=== PATIENT | female | born 1965 | race Caucasian/White ===

== ENCOUNTER 2016-09-30 13:44 | Emergency (ER) | payer OTHER ==
[2016-09-30] MEDS ORDERED: Ondansetron HCl/PF 4 MG/2 ML Vial ONE (14:18)
[2016-09-30] MEDS ORDERED: Aspirin 325 MG TAB ONE (14:18)
[2016-09-30] MEDS ORDERED: Metoclopramide HCl 10 MG/2 ML VIAL ONE (14:20)
[2016-09-30 14:41] LABS: PTT 25.3 SEC (22.9-36.1); Prothrombin Time 13.1 SEC (12.0-14.7)
--- NOTE | 2016-09-30 14:42 | RAD ---
PORTABLE AP CHEST: Date: 09-30-16 History: Chest pain, cardiac arrest. Comparison: 08-07-16 FINDINGS: Dual-lead left subclavian AICD device remains in place. Cardiac silhouette is magnified by projectio n but stable in size and does appear mildly enlarged. Pulmonary vasculature is within normal limits. The lungs remain clear. There is no interval change when compared to the prior exam. IMPRESSION: 1. No acute cardiopulmonary process. 2. Stable cardiomegaly. POS: [facility]
[2016-09-30] MEDS ORDERED: Nitroglycerin 0.4 MG TAB (25 Tab Bottle) ONE (14:47)
[2016-09-30 14:49] LABS: #Basophils 0.1 thou/uL (0.0-0.2); #Eosinphils 0.2 thou/uL (0.0-0.7); #Lymphocytes 2.2 thou/uL (1.20-3.40); #Monocytes 0.3 thou/uL (0.11-0.59); #Neutrophils 6.5 thou/uL (1.40-6.50); %Basophils 0.8 % (0.0-1.0); %Eosinophils 1.8 % (0.0-10.0); %Lymphocytes 23.4 % (21.0-51.0); %Monocytes 3.6 % (0.0-10.0); %Neutrophils 70.4 % (42.0-75.0); Hemoglobin 15.1 g/dL (12.0-16.0); Mean Corpuscular Hemoglobin 30.9 pg (27.0-31.0); Mean Corpuscular Volume 91.1 fl (81.0-99.0); Mean Platelet Volume 6.6 fL (7.4-10.4); Platelet Count 311 thou/uL (130-400); RBC Distribution Width 12.8 % (11.5-14.5); White Blood Cell (WBC) Count 9.2 thou/uL (4.8-10.8)
[2016-09-30 14:50] LABS: ALT (SGPT) 19 U/L (8-55); AST (SGOT) 17 U/L (5-34); Albumin 4.3 g/dL (3.5-5.0); Alkaline Phosphatase 73 U/L (40-150); Anion Gap 16 mmol/L (10-20); BUN (Urea Nitrogen) 14 mg/dL (9.8-20.1); Bilirubin, Total 0.6 mg/dL (0.2-1.2); Calc. Creatinine Clearance 0 mL/min (70-130); Calcium 10.3 mg/dL (7.8-10.44); Carbon Dioxide 24 mmol/L (22-29); Chloride 101 mmol/L (98-107); Estimated GFR-MDRD 40; Globulin 3.1 g/dL (2.4-3.5); Glucose 116 mg/dL (70-105); Potassium 3.6 mmol/L (3.5-5.1); Protein, Total 7.4 g/dL (6.0-8.3); Sodium 137 mmol/L (136-145)
[2016-09-30 14:51] LABS: CKMB 1.3 ng/mL (0-6.6); Troponin I 0.136 ng/mL (< 0.028)
== END 2016-09-30 17:32 | disposition short-term general hospital (02) ==
LOC: NAV ERS 13:44
DX: I24.9 Acute ischemic heart disease, unspecified (principal); I10 Essential (primary) hypertension; I25.2 Old myocardial infarction; F17.210 Nicotine dependence, cigarettes, uncomplicated; Z79.82 Long term (current) use of aspirin
CPT/HCPCS: 71010; 80053; 82553; 83880; 84484; 85025; 85610; 85730; 93005; 96374; 96375; 96376; J2270; J2405; J2765

== ENCOUNTER 2017-05-31 20:37 | Emergency (ER) | payer MEDICARE ==
[2017-05-31] MEDS ORDERED: Nitroglycerin 0.4 MG TAB (25 Tab Bottle) ONE (20:57)
[2017-05-31 20:59] LABS: #Basophils 0.1 thou/uL (0.0-0.2); #Eosinphils 0.2 thou/uL (0.0-0.7); #Lymphocytes 3.1 thou/uL (1.20-3.40); #Monocytes 0.5 thou/uL (0.11-0.59); #Neutrophils 4.3 thou/uL (1.40-6.50); %Basophils 1.5 % (0.0-1.0); %Eosinophils 2.7 % (0.0-10.0); %Lymphocytes 37.8 % (21.0-51.0); %Monocytes 5.5 % (0.0-10.0); %Neutrophils 52.5 % (42.0-75.0); Hemoglobin 15.8 g/dL (12.0-16.0); Mean Corpuscular HGB CONC 33.8 g/dL (32.0-36.0); Mean Platelet Volume 7.6 fL (7.4-10.4); Platelet Count 281 thou/uL (130-400); RBC Distribution Width 12.6 % (11.5-14.5); Red Blood Cell (RBC) Count 5.25 mill/uL (4.20-5.40); White Blood Cell (WBC) Count 8.2 thou/uL (4.8-10.8)
[2017-05-31 21:21] LABS: CKMB 0.6 ng/mL (0-6.6); Troponin I 0.158 ng/mL (< 0.028)
[2017-05-31 21:36] LABS: ALT (SGPT) 15 U/L (8-55); AST (SGOT) 14 U/L (5-34); Albumin 3.6 g/dL (3.5-5.0); Alkaline Phosphatase 61 U/L (40-150); Anion Gap 13 mmol/L (10-20); BUN (Urea Nitrogen) 21 mg/dL (9.8-20.1); Bilirubin, Total 0.5 mg/dL (0.2-1.2); Calc. Creatinine Clearance 0 mL/min (70-130); Calcium 10.3 mg/dL (7.8-10.44); Carbon Dioxide 25 mmol/L (22-29); Chloride 101 mmol/L (98-107); Estimated GFR-MDRD 33; Globulin 3.1 g/dL (2.4-3.5); Glucose 119 mg/dL (70-105); Potassium 3.8 mmol/L (3.5-5.1); Protein, Total 6.7 g/dL (6.0-8.3); Sodium 135 mmol/L (136-145)
[2017-05-31] MEDS ORDERED: Heparin 5,000 UNITS/ML VIAL ONE (21:37)
[2017-05-31] MEDS ORDERED: Sodium Chloride 0.9% 0 ML ONE (21:41)
[2017-05-31] MEDS ORDERED: Heparin 25,000 units/D5W 0 ML ONE (21:45)
--- NOTE | 2017-05-31 22:09 | RAD ---
AP CHEST: Indication: Left sided chest and breast pain. Comparison: 04-01-17 FINDINGS: There is some obscuration of the left hemidiaphragm which may reflect a left lower lobe pneumonia. Re commend a two view chest radiograph for further evaluation. Cardiomegaly is stable. AICD is unchanged . Right lung is clear. No acute osseous abnormality identified. IMPRESSION: 1. Retrocardiac airspace opacity may be related to poor penetration due to patient's body habitus; ho wever, left lower lobe pneumonia is not excluded. Recommend PA and lateral of the chest for further e valuation. 2. Stable cardiomegaly without evidence of cardiac decompenstation. POS: [facility]
== END 2017-05-31 22:35 | disposition short-term general hospital (02) ==
LOC: EEVIPCON 20:37 → NAV ERS 20:37
DX: I21.4 Non-ST elevation (NSTEMI) myocardial infarction (principal); I25.2 Old myocardial infarction; I25.10 Atherosclerotic heart disease of native coronary artery without angina pectoris; I10 Essential (primary) hypertension; E78.5 Hyperlipidemia, unspecified; E66.9 Obesity, unspecified; F32.9 Major depressive disorder, single episode, unspecified; F17.210 Nicotine dependence, cigarettes, uncomplicated; Z79.899 Other long term (current) drug therapy
CPT/HCPCS: 36415; 71045; 80053; 82553; 84484; 85025; 93005; 96374; J1644

== ENCOUNTER 2018-06-25 20:56 | Emergency (ER) | payer MEDICARE ==
--- NOTE | 2018-06-25 21:37 | RAD ---
LEFT ANKLE 3 VIEWS: HISTORY: Injury, left ankle pain FINDINGS: The ankle mortise is maintained. No acute fracture or dislocation is identified. There are plantar an d posterior calcaneal spurs. IMPRESSION: No acute bony abnormality.
== END 2018-06-25 21:50 | disposition home or self-care (01) ==
LOC: NAV ERS 20:56
DX: S93.402A Sprain of unspecified ligament of left ankle, initial encounter (principal); X50.1XXA Overexertion from prolonged static or awkward postures, initial encounter; I25.2 Old myocardial infarction; E78.5 Hyperlipidemia, unspecified; I10 Essential (primary) hypertension; I48.91 Unspecified atrial fibrillation; E03.9 Hypothyroidism, unspecified; F41.9 Anxiety disorder, unspecified; F17.210 Nicotine dependence, cigarettes, uncomplicated; F32.9 Major depressive disorder, single episode, unspecified; Z79.891 Long term (current) use of opiate analgesic; Z79.899 Other long term (current) drug therapy

== ENCOUNTER 2018-09-27 09:55 | Emergency (ER) | payer MEDICARE ==
[2018-09-27 10:55] LABS: #Basophils 0.1 thou/uL (0.0-0.2); #Eosinphils 0.2 thou/uL (0.0-0.7); #Lymphocytes 1.9 thou/uL (1.20-3.40); #Monocytes 0.4 thou/uL (0.11-0.59); #Neutrophils 6.9 thou/uL (1.40-6.50); %Basophils 0.7 % (0.0-1.0); %Eosinophils 2.3 % (0.0-10.0); %Lymphocytes 19.9 % (21.0-51.0); %Monocytes 4.6 % (0.0-10.0); %Neutrophils 72.5 % (42.0-75.0); Hemoglobin 13.7 g/dL (12.0-16.0); Mean Corpuscular HGB CONC 31.4 g/dL (32.0-36.0); Mean Corpuscular Hemoglobin 30.6 pg (27.0-31.0); Mean Corpuscular Volume 97.5 fL (78.0-98.0); Mean Platelet Volume 8.4 fL (7.4-10.4); Platelet Count 194 thou/uL (130-400); RBC Distribution Width 14.1 % (11.5-14.5); Red Blood Cell (RBC) Count 4.49 mill/uL (4.20-5.40); White Blood Cell (WBC) Count 9.5 thou/uL (4.8-10.8)
[2018-09-27] MEDS ORDERED: Ondansetron PF 4 MG/2 ML Vial ONE (11:05)
[2018-09-27] MEDS ORDERED: Sodium Chloride 0.9% 1,000 ML ONE (11:05)
[2018-09-27] MEDS ORDERED: Morphine 4 MG/ML VIAL ONE ×2 (11:06→13:08)
[2018-09-27 11:10] LABS: ALT (SGPT) 18 U/L (8-55); AST (SGOT) 14 U/L (5-34); Albumin 3.8 g/dL (3.5-5.0); Alkaline Phosphatase 52 U/L (40-150); Anion Gap 14 mmol/L (10-20); BUN (Urea Nitrogen) 14 mg/dL (9.8-20.1); Calc. Creatinine Clearance 0 mL/min (70-130); Calcium 9.3 mg/dL (7.8-10.44); Carbon Dioxide 26 mmol/L (22-29); Chloride 99 mmol/L (98-107); Estimated GFR-MDRD 46; Globulin 2.4 g/dL (2.4-3.5); Glucose 183 mg/dL (70-105); Lipase 40 U/L (8-78); Protein, Total 6.2 g/dL (6.0-8.3); Sodium 136 mmol/L (136-145)
[2018-09-27 11:11] LABS: Potassium 2.9 mmol/L (3.5-5.1)
[2018-09-27 11:26] LABS: CKMB 0.7 ng/mL (0-6.6)
--- NOTE | 2018-09-27 11:49 | CT ---
CT Abdomen Pelvis WO Con: 09/27/2018 11:20 AM HISTORY: Right lower quadrant abdominal pain COMPARISON: 06/24/2014 TECHNIQUE: Multiple contiguous axial images were obtained and a CT of the abdomen and pelvis without IV contrast . Coronal reformats were performed. FINDINGS: This examination is limited for the evaluation of solid organs and vascular structures due to the lac k of intravenous contrast. Lower Chest: within normal limits. Abdomen: Liver: There is a small stable hypodensity in the right lobe of liver which is too small to definitel y characterize but may represent a cyst. Bile Ducts: Normal caliber. Gallbladder: No calcified gallstones. Normal caliber wall. Pancreas: within normal limits. Spleen: within normal limits. Adrenals: within normal limits. Kidneys: within normal limits. Pelvis: Reproductive Organs: No pelvic masses. Ureters: within normal limits. Bladder: within normal limits. Bowel: Normal caliber. Normal appendix. Inflammatory changes seen adjacent to the right colon just pr oximal to the hepatic flexure. There are a few subtle scattered diverticula in the colon. Mesenteric Lymph Nodes: No enlarged mesenteric lymph nodes. Peritoneum: No ascites or free air, no fluid collection. Vessels: Atherosclerotic calcifications in the aorta Retroperitoneum: within normal limits. Abdominal Wall: within normal limits. Bones: Unremarkable. IMPRESSION: Inflammatory changes adjacent to the right colon may be secondary to focal colitis. Diverticulitis is a possibility as there are a few scattered diverticula in the colon.
[2018-09-27 12:01] LABS: Bilirubin Small (Negative); Blood, Urine Negative (Negative); Clarity Clear (Clear); Glucose, Urine (Dipstick) Negative (Negative); Leukocyte Negative (Negative); Nitrite Negative (Negative); Protein, Urine (Dipstick) Trace mg/dL (Neg-Trace)
[2018-09-27] MEDS ORDERED: Potassium Chloride 20 MEQ TAB ONE (12:02)
[2018-09-27] MEDS ORDERED: metroNIDAZOLE 500 MG/100 ML BAG ONE (12:56)
[2018-09-27] MEDS ORDERED: Ciprofloxacin Lactate/D5W 400 mg/200 ml Premix ONE (12:56)
== END 2018-09-27 13:24 | disposition short-term general hospital (02) ==
LOC: NAV ERS 09:55
DX: K52.9 Noninfective gastroenteritis and colitis, unspecified (principal); E87.6 Hypokalemia; R79.89 Other specified abnormal findings of blood chemistry; R09.02 Hypoxemia; I25.2 Old myocardial infarction; E78.5 Hyperlipidemia, unspecified; I10 Essential (primary) hypertension; E03.9 Hypothyroidism, unspecified; E66.9 Obesity, unspecified; I48.91 Unspecified atrial fibrillation; F41.9 Anxiety disorder, unspecified; F32.9 Major depressive disorder, single episode, unspecified; F17.210 Nicotine dependence, cigarettes, uncomplicated; Z79.899 Other long term (current) drug therapy
CPT/HCPCS: 36415; 74176; 80053; 81003; 82553; 83690; 83735; 84484; 85025; 93005; 94760; 96361; 96365; 96368; 96375; 96376; J0744; J2270; J2405; J7050

== ENCOUNTER 2018-11-26 07:11 | Emergency (ER) | payer MEDICARE ==
[2018-11-26] MEDS ORDERED: Promethazine HCl 25 MG/ML VIAL ONE (07:59)
[2018-11-26] MEDS ORDERED: Morphine 4 MG/ML VIAL ONE ×2 (07:59→10:02)
[2018-11-26 08:28] LABS: INR-International Normal Ratio 1.1; PTT 29.7 SEC (22.9-36.1); Prothrombin Time 14.1 SEC (12.0-14.7)
[2018-11-26 08:29] LABS: #Basophils 0.1 thou/uL (0.0-0.2); #Eosinphils 0.1 thou/uL (0.0-0.7); #Lymphocytes 1.5 thou/uL (1.20-3.40); #Monocytes 0.5 thou/uL (0.11-0.59); #Neutrophils 9.9 thou/uL (1.40-6.50); %Basophils 0.6 % (0.0-1.0); %Eosinophils 0.8 % (0.0-10.0); %Lymphocytes 12.6 % (21.0-51.0); %Monocytes 4.3 % (0.0-10.0); %Neutrophils 81.7 % (42.0-75.0); Hemoglobin 15.3 g/dL (12.0-16.0); Mean Corpuscular HGB CONC 32.5 g/dL (32.0-36.0); Mean Corpuscular Hemoglobin 30.4 pg (27.0-31.0); Mean Corpuscular Volume 93.6 fL (78.0-98.0); Mean Platelet Volume 7.7 fL (7.4-10.4); Platelet Count 217 thou/uL (130-400); RBC Distribution Width 13.1 % (11.5-14.5); Red Blood Cell (RBC) Count 5.04 mill/uL (4.20-5.40); White Blood Cell (WBC) Count 12.1 thou/uL (4.8-10.8)
[2018-11-26 08:38] LABS: ALT (SGPT) 14 U/L (8-55); AST (SGOT) 13 U/L (5-34); Albumin 4.2 g/dL (3.5-5.0); Alkaline Phosphatase 67 U/L (40-110); Anion Gap 15 mmol/L (10-20); BUN (Urea Nitrogen) 11 mg/dL (9.8-20.1); Bilirubin, Total 1.4 mg/dL (0.2-1.2); CK (CPK) 47 U/L (29-168); Calc. Creatinine Clearance 0 mL/min (70-130); Calcium 9.2 mg/dL (7.8-10.44); Carbon Dioxide 21 mmol/L (22-29); Chloride 105 mmol/L (98-107); Estimated GFR-MDRD 53; Globulin 2.7 g/dL (2.4-3.5); Glucose 133 mg/dL (70-105); Lipase 12 U/L (8-78); Potassium 4.1 mmol/L (3.5-5.1); Protein, Total 6.9 g/dL (6.0-8.3); Sodium 137 mmol/L (136-145)
[2018-11-26 08:55] LABS: CKMB 0.9 ng/mL (0-6.6)
[2018-11-26 09:00] LABS: Bilirubin Negative (Negative); Blood, Urine Moderate (Negative); Clarity Clear (Clear); Glucose, Urine (Dipstick) Negative (Negative); Leukocyte Negative (Negative); Nitrite Negative (Negative); Protein, Urine (Dipstick) 100 mg/dL (Neg-Trace)
[2018-11-26 09:11] LABS: Bacteria/HPF 1+ HPF (None Seen); WBC/HPF 0-3 HPF (0-3)
--- NOTE | 2018-11-26 09:32 | RAD ---
FRONTAL RADIOGRAPH CHEST UPRIGHT AND SUPINE IMAGING ABDOMEN AND PELVIS: DATE: 11/26/2018. HISTORY: Pain. FINDINGS: Cardiac silhouette is prominent. Mild pulmonary vascular congestion. There is a multilead AICD inse rted via a left subclavian approach. The upright imaging demonstrates no free intraperitoneal air. Evaluation of the bowel gas pattern is limited secondary to a paucity of bowel gas. No gas-filled dilated bowel is seen. IMPRESSION: Prominent cardiac silhouette with no evidence for alveolar edema or focal consolidation. No evidence for free intraperitoneal air. Paucity of bowel gas limits detailed assessment of the bowel gas andi albin. No gas-filled dilated bowel is noted. POS: [facility]
[2018-11-26] MEDS ORDERED: Acetaminophen/Codeine 30-300mg Tablet ONE (09:34)
--- NOTE | 2018-11-26 09:45 | CT ---
Exam: Abdomen CT without contrast Pelvic CT without contrast HISTORY: Abdominal pain. Diarrhea. Bright red blood in stool. COMPARISON: 09/27/2018 FINDINGS: Abdomen CT: Lung bases:Clear Heart size: Enlarged. No significant pericardial fluid Aorta: Atherosclerosis. No aneurysm. No periaortic fat stranding Solid organs: Limited evaluation due to lack of IV contrast. Stable hypodensities in the hepatic pare nchyma. Grossly no solid organ abnormality Lymph nodes: No gastrohepatic, retrocrural or periportal lymphadenopathy Gallbladder: Unremarkable Mesentery: No mass, lymphadenopathy, free air or free fluid Kidneys: Bilaterally, no hydronephrosis, or perinephric fat stranding. Bilateral ureters have a yolande l caliber. No hydroureter, periureteral fat stranding or ureterolithiasis. Punctate 1 mm nonobstructing calculi in the left or right renal pelvis. Alimentary canal: Limited evaluation due to technique. Gastric mucosa and small bowel unremarkable. U nremarkable ileocecal junction. Normal caliber appendix. Slight stranding at the tip of the appendix. Tip appendicitis is less favored given findings are similar to the previous examination. Th ere is mucosal thickening involving the splenic flexure and the descending colon. Correlate for colitis. CT PELVIS: No mass, adenopathy, free air or free fluid. Uterus and adnexal structures are unremarkable Urinary bladder: Unremarkable. Osseous structures: No lytic or blastic lesions IMPRESSION: 1. Bilateral nonobstructing intrarenal calculi. 2. Mucosal thickening and pericolonic fat stranding predominantly involving the splenic flexure and the descending colon. Correlate for infectious or inflammatory colitis. Transcribed Date/Time: 11/26/2018 10:38 AM
== END 2018-11-26 10:31 | disposition short-term general hospital (02) ==
LOC: NAV ERS 07:11
DX: K92.2 Gastrointestinal hemorrhage, unspecified (principal); I25.10 Atherosclerotic heart disease of native coronary artery without angina pectoris; I48.91 Unspecified atrial fibrillation; E03.9 Hypothyroidism, unspecified; E78.5 Hyperlipidemia, unspecified; E66.9 Obesity, unspecified; F41.9 Anxiety disorder, unspecified; F32.9 Major depressive disorder, single episode, unspecified; F17.210 Nicotine dependence, cigarettes, uncomplicated; Z79.899 Other long term (current) drug therapy; Z79.891 Long term (current) use of opiate analgesic; Z79.82 Long term (current) use of aspirin
CPT/HCPCS: 36415; 74022; 74176; 80053; 81003; 81015; 82550; 82553; 83605; 83630; 83690; 84484; 85025; 85610; 85730; 87045; 87046; 87324; 87427; 87449; 93005; 96372; 96374; 96376; J2270; J2550

== ENCOUNTER → 2019-05-01 | Emergency (ER) | payer MEDICARE ==
[~2019-05-01] MED LIST: Morphine 2 MG/ML SYRINGE ONE; Nitroglycerin 0.4 MG TAB (25 Tab Bottle) ONE; Nitroglycerin 2% Ointment 1 INCH/1 GM Packet ONE
[2019-05-01 21:47] LABS: #Basophils 0.1 thou/uL (0.0-0.2); #Eosinphils 0.3 thou/uL (0.0-0.7); #Lymphocytes 2.6 thou/uL (1.20-3.40); #Monocytes 0.3 thou/uL (0.11-0.59); #Neutrophils 3.4 thou/uL (1.40-6.50); %Basophils 1.1 % (0.0-1.0); %Lymphocytes 38.3 % (21.0-51.0); %Neutrophils 51.6 % (42.0-75.0); Hemoglobin 13.1 g/dL (12.0-16.0); Mean Corpuscular HGB CONC 32.4 g/dL (32.0-36.0); Mean Corpuscular Hemoglobin 31.4 pg (27.0-31.0); Mean Corpuscular Volume 96.8 fL (78.0-98.0); Mean Platelet Volume 7.2 fL (7.4-10.4); Platelet Count 232 thou/uL (130-400); RBC Distribution Width 14.4 % (11.5-14.5); Red Blood Cell (RBC) Count 4.17 mill/uL (4.20-5.40); White Blood Cell (WBC) Count 6.7 thou/uL (4.8-10.8)
--- NOTE | 2019-05-01 21:48 | RAD ---
EXAM: XR Chest 1 View Portable PROVIDED CLINICAL HISTORY: Chest pain COMPARISON: 03/01/2019 FINDINGS: Cardiac silhouette remains enlarged. Left subclavian cardiac pacing device is again seen in similar p osition. Obscuration of the left hemidiaphragm is again noted, which may be on the basis of cardiomegaly and body habitus. The right lung appears clear. Visualized left lung appears clear. No p neumothorax evident. No evidence for right pleural fluid. IMPRESSION: Cardiomegaly without evidence for an acute cardiopulmonary process, with limitations as described.
[2019-05-01 22:06] LABS: ALT (SGPT) 10 U/L (8-55); AST (SGOT) 12 U/L (5-34); Albumin 3.7 g/dL (3.5-5.0); Alkaline Phosphatase 63 U/L (40-110); Anion Gap 15 mmol/L (10-20); BUN (Urea Nitrogen) 14 mg/dL (9.8-20.1); Bilirubin, Total 1.2 mg/dL (0.2-1.2); Calc. Creatinine Clearance 0 mL/min (70-130); Calcium 11.1 mg/dL (7.8-10.44); Carbon Dioxide 25 mmol/L (22-29); Chloride 102 mmol/L (98-107); Estimated GFR-MDRD 35; Globulin 2.7 g/dL (2.4-3.5); Glucose 156 mg/dL (70-105); Lipase 25 U/L (8-78); Magnesium 1.7 mg/dL (1.6-2.6); Potassium 3.4 mmol/L (3.5-5.1); Protein, Total 6.4 g/dL (6.0-8.3); Sodium 139 mmol/L (136-145)
[2019-05-01 22:24] LABS: CKMB 1.2 ng/mL (0-6.6)
== END ==
LOC: NAV ERS 21:15
DX: R07.89 Other chest pain (principal); R79.89 Other specified abnormal findings of blood chemistry; R06.00 Dyspnea, unspecified; I25.10 Atherosclerotic heart disease of native coronary artery without angina pectoris; I48.91 Unspecified atrial fibrillation; E03.9 Hypothyroidism, unspecified; E78.00 Pure hypercholesterolemia, unspecified; I10 Essential (primary) hypertension; E66.9 Obesity, unspecified; F41.9 Anxiety disorder, unspecified; F32.9 Major depressive disorder, single episode, unspecified; F17.210 Nicotine dependence, cigarettes, uncomplicated; Z79.891 Long term (current) use of opiate analgesic; Z79.899 Other long term (current) drug therapy
CPT/HCPCS: 36415; 71045; 80053; 82553; 83690; 83735; 83880; 84484; 85025; 93005; 94760; 96374; J2270

== ENCOUNTER 2019-05-09 02:25 | Emergency (ER) | payer MEDICARE ==
[2019-05-09] MEDS ORDERED: Morphine 4 MG/ML VIAL ONE (02:56)
[2019-05-09] MEDS ORDERED: Nitroglycerin 2% Ointment 1 INCH/1 GM Packet ONE (02:56)
[2019-05-09] MEDS ORDERED: Ondansetron PF 4 MG/2 ML Vial ONE (02:56)
[2019-05-09 02:57] LABS: #Basophils 0.1 thou/uL (0.0-0.2); #Eosinphils 0.4 thou/uL (0.0-0.7); #Lymphocytes 2.6 thou/uL (1.20-3.40); #Monocytes 0.4 thou/uL (0.11-0.59); #Neutrophils 3.1 thou/uL (1.40-6.50); %Basophils 1.2 % (0.0-1.0); %Eosinophils 6.1 % (0.0-10.0); %Lymphocytes 39.1 % (21.0-51.0); %Monocytes 6.5 % (0.0-10.0); %Neutrophils 47.1 % (42.0-75.0); Mean Corpuscular HGB CONC 31.7 g/dL (32.0-36.0); Mean Corpuscular Hemoglobin 30.8 pg (27.0-31.0); Mean Corpuscular Volume 97.1 fL (78.0-98.0); Mean Platelet Volume 7.9 fL (7.4-10.4); Platelet Count 239 thou/uL (130-400); RBC Distribution Width 13.9 % (11.5-14.5); Red Blood Cell (RBC) Count 4.54 mill/uL (4.20-5.40); White Blood Cell (WBC) Count 6.6 thou/uL (4.8-10.8)
[2019-05-09 03:16] LABS: ALT (SGPT) 18 U/L (8-55); AST (SGOT) 18 U/L (5-34); Alkaline Phosphatase 61 U/L (40-110); Anion Gap 15 mmol/L (10-20); BUN (Urea Nitrogen) 17 mg/dL (9.8-20.1); Bilirubin, Total 1.4 mg/dL (0.2-1.2); CK (CPK) 54 U/L (29-168); Calc. Creatinine Clearance 0 mL/min (70-130); Calcium 9.3 mg/dL (7.8-10.44); Carbon Dioxide 21 mmol/L (22-29); Chloride 106 mmol/L (98-107); Estimated GFR-MDRD 43; Globulin 2.5 g/dL (2.4-3.5); Glucose 133 mg/dL (70-105); Lipase 36 U/L (8-78); Potassium 3.9 mmol/L (3.5-5.1); Protein, Total 6.5 g/dL (6.0-8.3); Sodium 138 mmol/L (136-145)
[2019-05-09 03:29] LABS: Bilirubin Negative (Negative); Blood, Urine Negative (Negative); Clarity Clear (Clear); Glucose, Urine (Dipstick) Negative (Negative); Leukocyte Negative (Negative); Nitrite Negative (Negative); Protein, Urine (Dipstick) Negative (Neg-Trace)
[2019-05-09 03:33] LABS: CKMB 1.2 ng/mL (0-6.6)
[2019-05-09] MEDS ORDERED: Morphine 2 MG/ML SYRINGE ONE (06:34)
--- NOTE | 2019-05-09 08:43 | RAD ---
PORTABLE CHEST 1 VIEW: DATE: 05/09/2019. TIME: 3:34 AM. HISTORY: Chest pain. FINDINGS/IMPRESSION: Comparison is made with the exam of 05/01/2019. The heart is enlarged. A left-sided pacing device rem ains in place. No lobar consolidation, pneumothorax, kathleen pulmonary edema, or large effusions are s een. POS: [facility]
== END 2019-05-09 03:53 | disposition short-term general hospital (02) ==
LOC: NAV ERS 02:25
DX: R07.9 Chest pain, unspecified (principal); I48.91 Unspecified atrial fibrillation; E03.9 Hypothyroidism, unspecified; I10 Essential (primary) hypertension; E78.5 Hyperlipidemia, unspecified; F41.9 Anxiety disorder, unspecified; F32.9 Major depressive disorder, single episode, unspecified; F17.210 Nicotine dependence, cigarettes, uncomplicated; I25.10 Atherosclerotic heart disease of native coronary artery without angina pectoris; I25.2 Old myocardial infarction; Z79.891 Long term (current) use of opiate analgesic; Z79.82 Long term (current) use of aspirin; Z79.899 Other long term (current) drug therapy
CPT/HCPCS: 71045; 80053; 81003; 82550; 82553; 83690; 83880; 84484; 85025; 93005; 96374; 96375; J2270; J2405

== ENCOUNTER 2019-08-08 20:51 | Emergency (ER) | payer MEDICARE ==
[2019-08-08] MEDS ORDERED: Fentanyl 100 MCG/2 ML VIAL ONE (21:37)
[2019-08-08] MEDS ORDERED: Promethazine HCl 25 MG/ML VIAL ONE (21:38)
[2019-08-08] MEDS ORDERED: Sodium Chloride 0.9% 1,000 ML ONE (21:38)
[2019-08-08 21:59] LABS: Bilirubin Negative (Negative); Blood, Urine Negative (Negative); Clarity Clear (Clear); Glucose, Urine (Dipstick) Negative (Negative); Leukocyte Negative (Negative); Nitrite Negative (Negative); Protein, Urine (Dipstick) Negative (Neg-Trace); Urobilinogen 0.2 mg/dL (Less than 2)
[2019-08-08 22:14] LABS: Band 6 % (5-11); Eosinophils 4 % (0-10); Hemoglobin 15.2 g/dL (12.0-16.0); Lymphocytes 20 % (21-51); MDiff Complete? YES; Mean Corpuscular HGB CONC 30.3 g/dL (32.0-36.0); Mean Corpuscular Volume 99.1 fL (78.0-98.0); Mean Platelet Volume 9.2 fL (7.4-10.4); Monocytes 4 % (0-10); Neutrophil 66 % (42-75); Platelet Count 240 thou/uL (130-400); Platelet Morphology Comment Appears Adequate; RBC Distribution Width 14.9 % (11.5-14.5); RBC Morphology Normal; Red Blood Cell (RBC) Count 5.06 mill/uL (4.20-5.40); White Blood Cell (WBC) Count 10.5 thou/uL (4.8-10.8)
[2019-08-08 22:18] LABS: ALT (SGPT) 13 U/L (8-55); AST (SGOT) 16 U/L (5-34); Albumin 4.2 g/dL (3.5-5.0); Alkaline Phosphatase 68 U/L (40-110); Anion Gap 16 mmol/L (10-20); BUN (Urea Nitrogen) 17 mg/dL (9.8-20.1); Bilirubin, Total 1.4 mg/dL (0.2-1.2); Calc. Creatinine Clearance 0 mL/min (70-130); Calcium 10.4 mg/dL (7.8-10.44); Carbon Dioxide 26 mmol/L (22-29); Chloride 100 mmol/L (98-107); Estimated GFR-MDRD 35; Globulin 3.1 g/dL (2.4-3.5); Glucose 103 mg/dL (70-105); Potassium 3.6 mmol/L (3.5-5.1); Protein, Total 7.3 g/dL (6.0-8.3); Sodium 138 mmol/L (136-145)
--- NOTE | 2019-08-08 22:36 | CT ---
CT Abdomen Pelvis WO Con HISTORY: Left lower quadrant pain COMPARISON: 11/26/2018 FINDINGS: Absence of oral and IV contrast reduces the sensitivity of the exam particularly for the evaluation o f solid organs and bowel. The lung bases are clear. There is a 15 mm low-density lesion in the right lobe of the liver which is stable since the CT pulmonary angiogram of 05/09/2019 but is slightly larger compared to 11/26/2018. No free air or free fluid is seen in the abdomen or pelvis. No calcified gallstones are noted. Uterus and ovaries are present. The small bowel loops are not abnormally dilated. Appendix appears to be normal. No calculi are seen in the kidneys, ureters or the urinary bladder. No hydroureteronephrosis is noted on either side. There are vascular calcifications without evidence of aneurysmal dilatation of the abdominal aorta. T here are degenerative changes in the spine. IMPRESSION: No evidence of obstructive uropathy.
--- NOTE | 2019-08-09 07:18 | RAD ---
TWO VIEWS OF THE RIGHT TOES: INDICATION: Right small digit toe injury with pain. FINDINGS: No acute fracture is demonstrated. There is eccentric expansile mixed lucent and sclerotic lesion lo cated in the metadiaphyseal region of the right 4th digit metatarsal neck measuring 1.5 x 7.5 mm. Th e lesion contains areas of internal calcification. Differential considerations include entities such as an enchondroma; however, related to the patient's age, a chondrosarcoma cannot be entirely exclud ed. Other entities such as giant cell tumor or aneurysmal bone could also produce a lesion such as t his. If the patient is symptomatic in this region, orthopedic referral is recommended. No pathologi c fracture is identified. IMPRESSION: 1. No acute fracture demonstrated. 2. Expansive lytic lesion of the metatarsal neck of the right 4th digit. The patient reports pain i n this region with soreness with weightbearing. Differential considerations are as above. Orthopedi c referral is recommended if the patient is symptomatic in this location. POS: [facility]
== END 2019-08-08 23:06 | disposition home or self-care (01) ==
LOC: NAV ERS 20:51
DX: S93.505A Unspecified sprain of left lesser toe(s), initial encounter (principal); R10.32 Left lower quadrant pain; I25.2 Old myocardial infarction; I25.10 Atherosclerotic heart disease of native coronary artery without angina pectoris; I48.91 Unspecified atrial fibrillation; E03.9 Hypothyroidism, unspecified; E78.00 Pure hypercholesterolemia, unspecified; E78.5 Hyperlipidemia, unspecified; I10 Essential (primary) hypertension; F41.9 Anxiety disorder, unspecified; F32.9 Major depressive disorder, single episode, unspecified; F17.210 Nicotine dependence, cigarettes, uncomplicated; Z79.82 Long term (current) use of aspirin; Z79.891 Long term (current) use of opiate analgesic; Z79.899 Other long term (current) drug therapy; X58.XXXA Exposure to other specified factors, initial encounter
CPT/HCPCS: 36415; 74176; 80053; 81003; 83605; 85025; 96365; 96375; J2550; J3010; J7050

== ENCOUNTER 2019-09-01 10:31 | Emergency (ER) | payer MEDICARE ==
[2019-09-01 11:04] LABS: #Basophils 0.1 thou/uL (0.0-0.2); #Eosinphils 0.3 thou/uL (0.0-0.7); #Lymphocytes 2.5 thou/uL (1.20-3.40); #Monocytes 0.5 thou/uL (0.11-0.59); %Basophils 1.5 % (0.0-1.0); %Eosinophils 3.8 % (0.0-10.0); %Lymphocytes 34.1 % (21.0-51.0); %Monocytes 6.5 % (0.0-10.0); %Neutrophils 54.1 % (42.0-75.0); Hemoglobin 15.5 g/dL (12.0-16.0); Mean Corpuscular HGB CONC 30.3 g/dL (32.0-36.0); Mean Corpuscular Hemoglobin 29.9 pg (27.0-31.0); Mean Corpuscular Volume 98.7 fL (78.0-98.0); Mean Platelet Volume 9.5 fL (7.4-10.4); Platelet Count 212 thou/uL (130-400); Red Blood Cell (RBC) Count 5.17 mill/uL (4.20-5.40); White Blood Cell (WBC) Count 7.4 thou/uL (4.8-10.8)
[2019-09-01] MEDS ORDERED: Aspirin Chewable 81 MG TAB ONE (11:18)
[2019-09-01 11:30] LABS: ALT (SGPT) 10 U/L (8-55); AST (SGOT) 14 U/L (5-34); Albumin 4.1 g/dL (3.5-5.0); Alkaline Phosphatase 71 U/L (40-110); Anion Gap 16 mmol/L (10-20); BUN (Urea Nitrogen) 11 mg/dL (9.8-20.1); Bilirubin, Total 2.6 mg/dL (0.2-1.2); Calc. Creatinine Clearance 0 mL/min (70-130); Calcium 10.7 mg/dL (7.8-10.44); Carbon Dioxide 23 mmol/L (22-29); Chloride 103 mmol/L (98-107); Estimated GFR-MDRD 37; Globulin 2.9 g/dL (2.4-3.5); Glucose 103 mg/dL (70-105); Lipase 17 U/L (8-78); Magnesium 1.7 mg/dL (1.6-2.6); Potassium 3.7 mmol/L (3.5-5.1); Sodium 138 mmol/L (136-145)
--- NOTE | 2019-09-01 11:34 | RAD ---
XR Chest 1 View Portable HISTORY: Chest pain COMPARISON: 07/04/2019 FINDINGS: The heart is enlarged. Left-sided AICD remains in place. The lungs are well expanded without lobar co nsolidation, pneumothoraces, kathleen pulmonary edema or large effusions. IMPRESSION: Cardiomegaly.
== END 2019-09-01 13:20 | disposition short-term general hospital (02) ==
LOC: NAV ERS 10:31
DX: R07.9 Chest pain, unspecified (principal); I48.91 Unspecified atrial fibrillation; E03.9 Hypothyroidism, unspecified; E78.5 Hyperlipidemia, unspecified; E78.00 Pure hypercholesterolemia, unspecified; F32.9 Major depressive disorder, single episode, unspecified; F41.9 Anxiety disorder, unspecified; I10 Essential (primary) hypertension; I25.10 Atherosclerotic heart disease of native coronary artery without angina pectoris; I25.2 Old myocardial infarction; Z87.891 Personal history of nicotine dependence; Z79.899 Other long term (current) drug therapy; Z79.82 Long term (current) use of aspirin
CPT/HCPCS: 71045; 80053; 82553; 83690; 83735; 83880; 84484; 85025; 93005; 94760

== ENCOUNTER 2019-11-21 16:08 | Emergency (ER) | payer MEDICARE ==
[2019-11-21] MEDS ORDERED: Ondansetron PF 4 MG/2 ML Vial ONE (16:11)
[2019-11-21] MEDS ORDERED: Naloxone HCl 0.4 mg/ml Vial ONE (16:11)
[2019-11-21] MEDS ORDERED: Propofol 1,000 MG/100 ML VIAL IV ONE (16:23)
--- NOTE | 2019-11-21 16:48 | RAD ---
Exam: Chest one view HISTORY:Intubated patient. Comparison: 10/25/2019 FINDINGS: Cardiac silhouette:Cardiomegaly. Left-sided defibrillator with lead positioned over the right atrium, right ventricle and coronary sinus. Lines and tubes: Nasogastric tube extends beyond the diaphragm and terminates in the left upper quadr ant. Endotracheal tube terminates at the level of clavicles. Aorta: Unremarkable Pulmonary vessels: Normal Costophrenic angles: Clear LUNGS: No masses or consolidation. Pneumothorax: None Osseous abnormalities: None IMPRESSION: Cardiomegaly. Endotracheal and nasogastric tube as above. No evidence of congestive heart failure.
[2019-11-21] MEDS ORDERED: Sodium Bicarb 50 MEQ/50 ML Abboject 8.4% SYRINGE ONE ×2 (16:49→16:50)
[2019-11-21] MEDS ORDERED: Fentanyl 100 MCG/2 ML VIAL ONE (16:53)
[2019-11-21 16:55] LABS: ALT (SGPT) 20 U/L (8-55); AST (SGOT) 33 U/L (5-34); Albumin 4.2 g/dL (3.5-5.0); Alkaline Phosphatase 76 U/L (40-110); Anion Gap 25 mmol/L (10-20); BUN (Urea Nitrogen) 14 mg/dL (9.8-20.1); Bilirubin, Total 1.7 mg/dL (0.2-1.2); Calc. Creatinine Clearance 0 mL/min (70-130); Calcium 9.1 mg/dL (7.8-10.44); Carbon Dioxide 15 mmol/L (22-29); Chloride 97 mmol/L (98-107); Estimated GFR-MDRD 29; Globulin 3.4 g/dL (2.4-3.5); Glucose 302 mg/dL (70-105); Potassium 3.6 mmol/L (3.5-5.1); Protein, Total 7.6 g/dL (6.0-8.3); Sodium 133 mmol/L (136-145)
[2019-11-21 16:56] LABS: Acetaminophen Less than 6.0 mcg/mL (10.0-30.0); Alcohol Less than 10 mg/dL (Less than 10); Salicylate Less than 8.0 mg/dL (15.0-30.0)
[2019-11-21 17:19] LABS: #Basophils 0.1 thou/uL (0.0-0.2); #Eosinphils 0.2 thou/uL (0.0-0.7); #Lymphocytes 3.2 thou/uL (1.20-3.40); #Monocytes 0.4 thou/uL (0.11-0.59); #Neutrophils 6.4 thou/uL (1.40-6.50); %Basophils 1.2 % (0.0-1.0); %Eosinophils 2.3 % (0.0-10.0); %Lymphocytes 30.7 % (21.0-51.0); %Monocytes 4.1 % (0.0-10.0); %Neutrophils 61.6 % (42.0-75.0); Hemoglobin 17.2 g/dL (12.0-16.0); MDiff Complete? YES; Macrocytosis SLIGHT = 6-15 cells (100X) (0-5/hpf); Mean Corpuscular HGB CONC 29.8 g/dL (32.0-36.0); Mean Platelet Volume 8.9 fL (7.4-10.4); Platelet Count 239 thou/uL (130-400); Red Blood Cell (RBC) Count 5.75 mill/uL (4.20-5.40); White Blood Cell (WBC) Count 10.4 thou/uL (4.8-10.8)
[2019-11-21 17:24] LABS: Bilirubin Small (Negative); Blood, Urine Trace (Negative); Clarity Clear (Clear); Glucose, Urine (Dipstick) Negative (Negative); Ketone, Urine Negative (Negative); Leukocyte Negative (Negative); Nitrite Negative (Negative); Protein, Urine (Dipstick) Trace mg/dL (Neg-Trace); pH, Urine 5.5 (5.0-9.0)
[2019-11-21 17:39] LABS: CKMB 1.5 ng/mL (0-6.6)
[2019-11-21 17:44] LABS: Amphetamine Not Detected (NotDetected); Barbiturates Screen Not Detected (NotDetected); Benzodiazepine Screen Detected (NotDetected); Cocaine Metabolite Screen Not Detected (NotDetected); Medtox Control Line Valid? VALID (VALID); Methadone Not Detected (NotDetected); Methamphetamine Not Detected (NotDetected); Opiate Screen Not Detected (NotDetected); Oxycodone Screen Not Detected (NotDetected); Phencyclidine (PCP) Not Detected (NotDetected); THC/Cannabinoid Screen Not Detected (NotDetected); Tricyclic Screen Not Detected (NotDetected)
[2019-11-21 17:46] LABS: Pregnancy Test - Urine (BHCG) Negative (Negative); Pregu Control Background? CLEAR/WHITE (CLR/WHITE); Pregu Control Bar Appear? YES (CONTROL BAR)
[2019-11-21 17:47] LABS: Bacteria/HPF None Seen HPF (None Seen); RBC/HPF 0-3 HPF (0-3); Squamous Epithelial 21-50 HPF (0-3); WBC/HPF None Seen HPF (0-3)
== END 2019-11-21 17:25 | disposition short-term general hospital (02) ==
LOC: NAV ERS 16:08
DX: T45.0X2A Poisoning by antiallergic and antiemetic drugs, intentional self-harm, initial encounter (principal); N17.9 Acute kidney failure, unspecified; R57.1 Hypovolemic shock
CPT/HCPCS: 31500; 51702; 71045; 80053; 80306; 80307; 81003; 81015; 81025; 82553; 83605; 83735; 83880; 84484; 85025; 93005; 96361; 96365; 96374; 96375; J2310; J2405; J2704; J3010